=== PATIENT | male | born 1980 | race Caucasian/White ===

== ENCOUNTER 2019-12-01 09:11 | Emergency (ER) | payer BC ==
[2019-12-01] MEDS ORDERED: Ketorolac Tromethamine 30 MG/ML VIAL ONE (09:33)
[2019-12-01] MEDS ORDERED: Fentanyl 100 MCG/2 ML VIAL ONE (09:33)
[2019-12-01] MEDS ORDERED: Ondansetron PF 4 MG/2 ML Vial ONE (09:33)
[2019-12-01 11:08] LABS: #Eosinphils 0.1 thou/uL (0.0-0.7); #Lymphocytes 1.2 thou/uL (1.20-3.40); #Monocytes 0.7 thou/uL (0.11-0.59); #Neutrophils 5.7 thou/uL (1.40-6.50); %Basophils 0.3 % (0.0-1.0); %Eosinophils 0.6 % (0.0-10.0); %Lymphocytes 15.8 % (21.0-51.0); %Monocytes 9.2 % (0.0-10.0); %Neutrophils 74.1 % (42.0-75.0); Mean Corpuscular Hemoglobin 31.7 pg (27.0-31.0); Mean Platelet Volume 7.8 fL (7.4-10.4); Platelet Count 158 thou/uL (130-400); RBC Distribution Width 11.6 % (11.5-14.5); Red Blood Cell (RBC) Count 4.75 mill/uL (4.70-6.10); White Blood Cell (WBC) Count 7.6 thou/uL (4.8-10.8)
[2019-12-01] MEDS ORDERED: Dexamethasone 10 MG/ML VIAL ONE (11:18)
[2019-12-01 11:25] LABS: ALT (SGPT) 20 U/L (8-55); AST (SGOT) 20 U/L (5-34); Albumin 3.8 g/dL (3.5-5.0); Alkaline Phosphatase 35 U/L (40-110); Anion Gap 12 mmol/L (10-20); BUN (Urea Nitrogen) 12 mg/dL (8.9-20.6); Bilirubin, Total 0.3 mg/dL (0.2-1.2); Calc. Creatinine Clearance 0 mL/min (70-130); Calcium 8.2 mg/dL (7.8-10.44); Carbon Dioxide 23 mmol/L (22-29); Chloride 108 mmol/L (98-107); Estimated GFR-MDRD Greater than 90; Globulin 2.4 g/dL (2.4-3.5); Glucose 97 mg/dL (70-105); Lipase 31 U/L (8-78); Potassium 3.7 mmol/L (3.5-5.1); Protein, Total 6.2 g/dL (6.0-8.3); Sodium 139 mmol/L (136-145)
[2019-12-01 11:45] LABS: Bilirubin Negative (Negative); Blood, Urine Negative (Negative); Clarity Clear (Clear); Glucose, Urine (Dipstick) Normal (Negative); Leukocyte Negative Leu/uL (Negative); Nitrite Negative (Negative); Protein, Urine (Dipstick) Negative (Neg-Trace); Urobilinogen Normal mg/dL (Less than 2)
--- NOTE | 2019-12-01 12:02 | CT ---
CT ABDOMEN AND PELVIS WITHOUT CONTRAST: INDICATIONS: Back pain. FINDINGS: The lung bases are clear. The liver, spleen and pancreas are unremarkable. The stomach and duodenum appear unremarkable. The ad renal glands are normal. The kidneys are unremarkable. There is no hydronephrosis or evidence of urinary calculus. The urinary bladder is distended. Small bowel loops are of normal caliber. There is large volume stool seen in the sigmoid and rectum w ith a dilated rectum. The aorta is of normal caliber. No mass or adenopathy. The lumbar spine is unremarkable. The lumbar vertebrae maintain normal height and alignment. There is a mild disk bulge at L5-S1. No evidence of disk protrusion or central canal stenosis. IMPRESSION: 1. No acute intra-abdominal process. 2. Large volume stool in the sigmoid and rectum with a dilated rectum. POS: [facility]
[2019-12-01 12:20] LABS: CK (CPK) 54 U/L (30-200)
== END 2019-12-01 12:38 | disposition home or self-care (01) ==
LOC: ERS 09:11
DX: M51.26 Other intervertebral disc displacement, lumbar region (principal); E21.3 Hyperparathyroidism, unspecified
CPT/HCPCS: 36415; 74176; 80053; 81003; 82550; 83690; 85025; 96374; 96375; J1100; J1885; J2405; J3010